=== PATIENT | male | born 1995 | race Caucasian/White ===

== ENCOUNTER 2017-09-26 16:57 | Emergency (ER) | payer OTHER ==
[2017-09-26 17:10] VITALS: BP 114/57; BMI 23.7
--- NOTE | 2017-09-26 20:49 | RAD ---
CHEST RADIOGRAPHS PA AND LATERAL VIEWS CLINICAL HISTORY: 21-year-old male with fever and cough with diarrhea. COMPARISON: None. FINDINGS: The cardiopericardial silhouette is normal. There is no focal consolidation, pleural effus ion or pneumothorax. The lungs are well inflated. Pulmonary vascularity is normal. Imaged osseous str uctures are intact. Soft tissues are unremarkable. IMPRESSION: No acute cardiopulmonary process. Reported By:
--- NOTE | 2017-09-26 21:10 | DR.GENAD ---
HPI - PCP Primary Care Physician: NFD - Complaint/Symptoms Chief Complaint:: STARTED HAVING DIARRHEA LAST TUESDAY. HAS FELT WORSE EVERY DAY SINCE. FEVER STARTED THIS MORNING 103.5 TMAX. STARTED COUGHING UP LIGHT GREEN SPUTUM TODAY. ALSO FELL LAST WEEK AND HURT LEFT KNEE Self Treatment fo Chief Complaint: IBUPROFEN, PHENERGAN, AND MOTRIN AT HOME WITH NO RELIEF - Source History Provided: Patient - Mode of Arrival Mode of Arrival: Ambulatory - Timing Onset of Chief Complaint: 09/29/17 PMH - PMH Past Medical History: Yes Past Medical History Comment: HYPOGLYCEMIA Past Surgical History: Yes Surgical History: Tonsillectomy - Family History History of Family Medical Conditions: Yes Family Medical History: Cancer, Hypertension Family Medical History Comment: pots (MOM), FIBROMYALGIA - Social History Does patient currently use any type of tobacco product: Yes Have you used tobacco products in the last 12 months: Yes Type of Tobacco Use: Cigarettes Alcohol Use: Occasionally Do you use any recreational Drugs:: No Lives Where: Home - infectious screening In the last 2 months have you had wt loss of >10#?: NO Have you had fever, night sweats or hemotysis?: Yes Have you traveled outside the country in the last 6 months?: No Isolation: Standard ROS - Review of Systems Constitutional: No Symptoms Reported Eyes: No Symptoms Reported ENTM: No Symptoms Reported Respiratoy: No Symptoms Reported Cardiovascular: No Symptoms Reported Gastrointestinal/Abdominal: Nausea, Vomiting Genitourinary: No Symptoms Reported Neurological: No Symptoms Reported Musculoskeletal: Knee Integumentary: No Symptoms Reported Hematologic/Lymphatic: No Symptoms Reported Endocrine: No Symptoms Reported Psychiatric: No Symptoms Reported All Other Systems: Reviewed and Negative PE - Vital Signs Vitals: Temperature 100.0 F Pulse Rate 112 Respiratory Rate 22 Blood Pressure 114/57 O2 Sat by Pulse Oximetry 96 - General General Appearance: Alert, In No Apparent Distress, Appears Intoxicated - Head Head Exam: Normal Inspection, Atraumatic - Eyes Eye exam: Normal Appearance, PERRL, EOMI - ENT ENT Exam: Normal Exam, Normal Oropharynx External Ear Exam: Normal External Inspection TM/Canal Exam: Bilateral Normal Nose Exam: Normal Nose Exam, Sinus Tenderness Mouth Exam: Normal Inspection Throat Exam: Normal Inspection - Neck Neck Exam: Normal Inspection, Full ROM - Chest Chest Inspection: Normal Inspection - Respiratory Respiratory Exam: Normal Lung Sounds Bilat Respiratory Exam: Bilateral Clear to Auscultation - Cardiovascular Cardiovascular Exam: Tachycardia - Abdominal Exam Abdominal Exam: Normal Inspection Abdominal Tenderness: negative: RUQ, RLQ, LUQ, LLQ, Epigastrium, Suprapubic, Diffuse, Mild, Moderate, Severe, Other - Extremities Extremities Exam: Normal Inspection - Back Back Exam: Normal Inspection, Full ROM - Neurologic Neurological Exam: Alert, Oriented X3, CN II-XII Intact - Psychiatric Psychiatric Exam: Normal Affect - Skin Skin Exam: Warm, Dry, Intact ROR - Labs Reviewed Laboratory Results Reviewed?: Yes (Influenza A positive) Laboratory: Streptococcus Screen Negative (NEGATIVE) 09/26/17 20:36 - XRAY XRAY Interpreted by: Radiologist (Chest: No acute cardiopulmonary process) - Diagnosis Discharge Problem: Influenza A - Discharge Plan Condition: Stable - Follow ups/Referrals Follow ups/Referrals: NFD,None [Primary Care Provider] - 3 days - Instructions
[2017-09-26 21:11] LABS: BILIRUBIN,URINE NEGATIVE (NEGATIVE); BLOOD/HEMOGLOBIN,URINE NEGATIVE (NEGATIVE); GLUCOSE, URINE NEGATIVE (NEGATIVE); KETONES,URINE 1+ (NEGATIVE); LEUKOCYTE ESTERASE ,URINE 1+ (NEGATIVE); NITRITES,URINE NEGATIVE (NEGATIVE); PROTEIN,URINE 2+ (NEGATIVE); UROBILINOGEN,URINE 2+ (NORMAL)
[2017-09-26] MEDS ORDERED: TORADOL 60 MG VIAL IM ONE (21:13)
[2017-09-26] MEDS ORDERED: TORADOL 60 MG VIAL ONE (21:14)
[2017-09-26 21:18] LABS: APPEARANCE,URINE HAZY (CLEAR); BACTERIA,URINE TRACE /HPF (NEGATIVE); COLOR,URINE YELLOW (YELLOW); MUCUS,URINE FEW /HPF (NEGATIVE); RBC,URINE 0-2 /HPF (NEGATIVE); SQUAMOUS EPITHELIAL CELL,UR RARE /HPF (NEGATIVE)
== END 2017-09-26 21:32 | disposition home or self-care (01) ==
LOC: ER 17:19
DX: J11.1 Influenza due to unidentified influenza virus with other respiratory manifestations (principal)
CPT/HCPCS: 71046; 81001; 87070; 87502; 87880; 96372; 99282; J1885